=== PATIENT | female | born 1995 | race Caucasian/White ===

== ENCOUNTER 2016-12-17 11:29 | Emergency (ER) | payer SELFPAY ==
[~2016-12-17] VITALS: Ht 154.9 cm; Wt 50.0 kg
[2016-12-17] MEDS ORDERED: FAMOTIDINE 20 MG/2 ML ONE (11:59)
[2016-12-17] MEDS ORDERED: ONDANSETRON 2MG/ML, 2ML ONE (11:59)
[2016-12-17] MEDS ORDERED: ONDANSETRON 2MG/ML, 2ML IVPush ONE (12:00)
[2016-12-17] MEDS ORDERED: PLEASE ENTER HEIGHT AND WEIGHT MC SCH (12:00)
[2016-12-17] MEDS ORDERED: SODIUM CHLORIDE FLUSH 10ML SYR IVF ONE (12:00)
[2016-12-17] MEDS ORDERED: FAMOTIDINE 20 MG/2 ML IVP ONE (12:00)
[2016-12-17] MEDS ORDERED: SODIUM CHLORIDE 0.9% 1,000ML IVBOLUS ONE (12:00)
[2016-12-17 12:09] LABS: HEMATOCRIT 42.2 % (34.6-47.8); HEMOGLOBIN 14.4 g/dL (11.7-16.4); WHITE BLOOD COUNT 11.3 x10^3/uL (4.5-13.2)
[2016-12-17 12:22] LABS: ASPARTATE AMINO TRANSFERASE 28 U/L (15-37); BLOOD UREA NITROGEN 9 mg/dL (7-18)
[2016-12-17] MEDS ORDERED: POTASSIUM CHLORIDE 20 MEQ TAB.ER.PRT ONE (13:48)
[2016-12-17] MEDS ORDERED: PROMETHAZINE 25 MG/ML, 1ML ONE (13:59)
[2016-12-17] MEDS ORDERED: PROMETHAZINE 25 MG/ML, 1ML IM ONE (14:00)
[2016-12-17] MEDS ORDERED: POTASSIUM CHLORIDE 20 MEQ TAB.ER.PRT PO ONE (14:00)
[2016-12-17 14:31] VITALS: BP 118/65
== END 2016-12-17 14:36 | disposition home or self-care (01) ==
LOC: ED 12:55
DX: E87.6 Hypokalemia (principal); E86.9 Volume depletion, unspecified
CPT/HCPCS: 36415; 80053; 81003; 83690; 84703; 85025; 96361; 96372; 96374; 96375; 99284; J2405; J2550; J7030; S0028